=== PATIENT | male | born 1995 | race Caucasian/White ===

== ENCOUNTER 2017-09-23 18:38 | Emergency (ER) | payer OTHER ==
[~2017-09-23] VITALS: Ht 180.3 cm; Wt 74.8 kg
[~2017-09-23 18:38] MED LIST: METPHE20ER PO; Norco 5-325 Ta1 EACH PO
[2017-09-23] MEDS ORDERED: Norco 5-325 Ta1 EACH PO (22:02)
[2017-09-23] MEDS ORDERED: Keflex500 MG PO (22:02)
== END 2017-09-23 22:10 | disposition home or self-care (01) ==
LOC: ER 18:38
DX: S81.012A Laceration without foreign body, left knee, initial encounter (principal); Z79.899 Other long term (current) drug therapy; Z87.891 Personal history of nicotine dependence; W27.0XXA Contact with workbench tool, initial encounter
CPT/HCPCS: 12035; 99283

== ENCOUNTER 2021-05-09 23:02 | Emergency (ER) | payer SELFPAY | END 2021-05-10 02:48 | disposition home or self-care (01) | LOC: ER 23:02 | DX: R07.81 Pleurodynia (principal); R07.9 Chest pain, unspecified; Z87.891 Personal history of nicotine dependence ==